=== PATIENT | female | born 1990 | race Caucasian/White ===

== ENCOUNTER 2019-04-09 12:15 | Inpatient (IN) | payer MEDICAID ==
[~2019-04-09] VITALS: Ht 157.5 cm; Wt 69.9 kg
[2019-04-09 12:33] VITALS: Ht 157.5 cm; Wt 69.9 kg
[2019-04-09] MEDS ORDERED: PREN-93 PO (12:35)
--- NOTE | 2019-04-09 16:53 | HP ---
Date/Time of Note Date/Time of Note DATE: 04/09/19 TIME: 16:52 OB - History Hx of Present Free Text/Dictation 37+ : 1 Para: 0 Care: Good Care Ultrasounds: Normal mid trimester US Obstetrical Complications: None Past Family/Social History * Past Medical, Surgical, Family and Obstetric Histories reviewed from chart. OB Admission Exam Physical Exam Cervical Dilatation: 4cm Effacement: 75% Station: -1 Membranes: Intact Heart Rate: 140's Accelerations: Accelerations Present Decelerations: No Decelerations Varibility: Moderate Contractions on Admission: 6-10 Minutes Apart OB Assessment/Plan Reason for admission: observation Other Assessment: PMH Denies PSH Denies Plan: Expectant Management MEGHANA MYERS M.D. Apr 09, 2019 16:53
--- NOTE | 2019-04-09 17:07 | TRIAGE ---
OB Triage Datetime Report Generated by CPN: 04/09/2019 17:07 Datetime: 04/09/2019 16:42 Vaginal Exam Dilatation (cms): 5.0 Effacement (%): 90 Station: -2 Exam By: DR MYERS Datetime: 04/09/2019 16:13 Stage of : OB Triage Maternal Assessment Level of Consciousness: Keenly Alert, Responsive DTR's/Clonus: DTRs 1+ Headache: Denies Blurred Vision: No Respiratory Effort: Unlabored Breath Sounds, Left: Clear and Equal Breath Sounds, Right: Clear and Equal Nausea/Vomiting: Denies RUQ Epigastric Pain: Denies Facial Edema: None Labor Evaluation Frequency: 3-11 Monitor Mode: External Duration (sec)2399: 40-60 Quality: Mild Pattern: Normal: <= 5 Contractions in 10 Minutes Resting Tone Niles: Relaxed Heart Rate FHR Baseline Rate: 135 Monitor Mode: External US Variability: Moderate 6-25 bpm Accelerations: 15X15 Decelerations: None Category: Category I Pain Assessment Pain Scale: 5 Pain Presence: Intermittent Pain Type: Cramping Pain Location: Back Pain Goal: 3 Membrane Status: Intact Datetime: 04/09/2019 15:14 Stage of : OB Triage Vaginal Exam Dilatation (cms): 2.5 Effacement (%): 90 Station: -2 Exam By: REFUGIO PEREA Vaginal Bleeding: None Cervix, Consistency: Soft Cervix, Position: Midposition Presentation 'A': Cephalic Datetime: 04/09/2019 13:23 Stage of : OB Triage Maternal Assessment Level of Consciousness: Keenly Alert, Responsive DTR's/Clonus: DTRs 1+ Headache: Denies Nausea/Vomiting: Denies RUQ Epigastric Pain: Denies Labor Evaluation Frequency: X3 Monitor Mode: External Duration (sec)2399: 40-210 Quality: Mild Pattern: Normal: <= 5 Contractions in 10 Minutes Resting Tone Niles: Relaxed Heart Rate FHR Baseline Rate: 130 Monitor Mode: External US Variability: Moderate 6-25 bpm Accelerations: 15X15 Decelerations: None Category: Category I Pain Presence: None/Denies Pain Type: N/A Membrane Status: Intact Datetime: 04/09/2019 12:53 Stage of : OB Triage Maternal Assessment Level of Consciousness: Keenly Alert, Responsive DTR's/Clonus: DTRs 1+ Headache: Denies Blurred Vision: No Nausea/Vomiting: Denies RUQ Epigastric Pain: Denies Facial Edema: None Labor Evaluation Frequency: 4-7 Monitor Mode: External Duration (sec)2399: 40-210 Quality: Mild Pattern: Normal: <= 5 Contractions in 10 Minutes Resting Tone Niles: Relaxed Heart Rate FHR Baseline Rate: 130 Monitor Mode: External US Variability: Moderate 6-25 bpm Accelerations: 15X15 Decelerations: None Category: Category I Pain Presence: None/Denies Pain Type: N/A Membrane Status: Intact Datetime: 04/09/2019 12:25 Stage of : OB Triage Vaginal Exam Dilatation (cms): 2.0 Effacement (%): 90 Station: -3 Exam By: BRITRN Datetime: 04/09/2019 12:20 Assessment Type: Triage Maternal Assessment Level of Consciousness: Keenly Alert, Responsive DTR's/Clonus: DTRs 2+; No Clonus Headache: Denies Blurred Vision: No Respiratory Effort: Unlabored; Regular Rhythm; Equal Expansion Breath Sounds, Left: Clear and Equal Breath Sounds, Right: Clear and Equal Nausea/Vomiting: Denies RUQ Epigastric Pain: Denies Lower Extremities Edema: None Degree: None Upper Extremities Edema: None Degree: None Facial Edema: None Fall Risk Assessment History of Falling: (0) No Secondary Diagnosis: (0) No Ambulatory Aid: (0) Bedrest/Nurse Assist IV Therapy: (0) No Gait: (0) Normal/Bedrest/Immobile Mental Status: (0) Oriented to Own Ability Fall Score: 0 Fall Risk Score Definition: No Risk: No action required Datetime: 04/09/2019 12:18 Time of Arrival: 04/09/2019 12:18 EGA: 37.3 Arrived By: Ambulatory Arrived From: Home Chief Complaint: R/O LABOR Movement: Present Contractions: Irregular Rupture of Membranes: Denies Vaginal Discharge: Denies Recent Sexual Intercouse: Denies Abdominal Trauma: Not Applicable Additional Patient Complaints: NONE Time Provider Notified: 04/09/2019 12:30 Provider Notified: TRINY Initial Plan: MONITOR, VE, BPP
[2019-04-09] MEDS: LACTATED RINGER'S 1,000 ML IV SCH (17:43)
[2019-04-09] MEDS ORDERED: METHYLERGONOVINE 0.2 MG INJ IM PRN (18:00)
[2019-04-09] MEDS ORDERED: AMPICILLIN 2 GM/NS (PMX) 100 ML IV ONE (18:00)
[2019-04-09] MEDS ORDERED: MISOPROSTOL 200 MCG TAB PR PRN (18:00)
[2019-04-09] MEDS ORDERED: OXYTOCIN 30 UNITS/LR 500 ML IV PRN (18:00)
[2019-04-09] MEDS ORDERED: CARBOPROST 250 MCG INJ IM PRN (18:00)
[2019-04-09] MEDS ORDERED: OXYTOCIN 30 UNITS/LR 500 ML IV SCH ×2 (18:00)
[2019-04-09] MEDS ORDERED: LIDOCAINE 1% (MPF) 30 ML INJ INJ PRN (18:00)
[2019-04-09] MEDS ORDERED: BUTORPHANOL 2 MG INJ IV PRN (18:00)
[2019-04-09] MEDS ORDERED: AMPICILLIN 1 GM/NS (PMX) 50 ML IV SCH (21:00)
[2019-04-10] MEDS: LACTATED RINGER'S 1,000 ML IV SCH ×3 (02:08→16:03)
--- NOTE | 2019-04-10 11:31 | QN ---
Documentation Comment progress note patient seen and evaluated no complaints vs stable afebrile ab gravid nt extremity no edema no calf tenderness ve 4-5/90/-1 srom fhr cat 1 toco occasional ctx a/ iup at term, in labor/srom p/ start pitocin for augmentation pain management as needed MUSA AGOSTO MD Apr 10, 2019 11:31
[2019-04-10] MEDS ORDERED: FENTAnyl 2MCG/ML-ROPIV 0.2% 100 ML ONE (11:36)
--- NOTE | 2019-04-10 12:14 | PREAC ---
Date/Time of Note Date/Time of Note DATE: 04/10/19 TIME: 12:12 Anesthesia Eval and Record Evaluation Time Pre-Procedure Interview DATE: 04/10/19 TIME: 12:12 Age 29 Sex female NPO: 8 hrs Preoperative diagnosis IUP Planned procedure L&D Epidural Past Medical History Past Medical History: Includes GI: Obesity : : Surgery & Anesthesia Issues No known issue Meds Anticoagulation: No Beta Josette within 24 hr: No Reason Beta Josette not given: Pt. not on B-Josette Reported Medications Vit No.124/Iron/FA ( Vitamin Tablet) 1 Each Tablet, 1 EACH PO, TAB 04/09/19 Current Medications Lactated Ringer's 1,000 ml @ 125 mls/hr Q8H IV Last administered on 04/10/19at 10:04; Admin Dose 125 MLS/HR; Start 04/09/19 at 17:32 Butorphanol Tartrate (Stadol) 2 mg Q2H PRN IV .PAIN SCALE 6-10; Start 04/09/19 at 18:00 Lidocaine (Xylocaine 1% (Mpf)) 30 ml ONCE PRN INJ .EPISIOTOMY; Start 04/09/19 at 18:00 Oxytocin/Lactated Ringer's 500 ml @ 500 mls/hr ONCE POST IV ; Start 04/09/19 at 18:00 Oxytocin/Lactated Ringer's 500 ml @ 125 mls/hr POST IV ; Start 04/09/19 at 18:00 Oxytocin/Lactated Ringer's 500 ml @ 0 mls/hr ONCE PRN IV .VAGINAL BLEEDING; Start 04/09/19 at 18:00 Methylergonovine Maleate (Methergine) 0.2 mg ONCE PRN IM .VAGINAL BLEEDING; Start 04/09/19 at 18:00 Carboprost Tromethamine (Hemabate) 250 mcg ONCE PRN IM .VAGINAL BLEEDING; Start 04/09/19 at 18:00 Misoprostol (Cytotec) 1,000 mcg ONCE PRN ME .VAGINAL BLEEDING; Start 04/09/19 at 18:00 Meds reviewed: Yes Allergies Coded Allergies: No Known Allergy (Unverified , 04/09/19) Allergies Reviewed: Yes Labs/Studies Labs Reviewed: Reviewed by anesthesiologist Result Diagram: 04/09/19 9965 Laboratory Tests 04/09/19 17:35 Blood Bank Test 04/09/19 17:35 Antibody Screen NEGATIVE Blood Type O POSITIVE Rh Immune Globulin Candidate NO test: Positive Studies: ECG Pre-procedure Exam Last vitals BP:112/56, P:78, Spo2:100%, T:98,8 Airway: Adequate mouth opening, Adequate thyromental dist Mallampati: Mallampati II Teeth: Normal Lung: Normal Heart: Normal ASA Physical Status ASA physical status: 2 Emergency: None Planned Anesthetic Neuraxial: Epidural Planned Pain Management Epidural, Parenteral pain med Pre-operative Attestations Prior to commencing anesthesia and surgery, the patient was re-evaluated, there was verification of: *The patient's identity *The results of appropriate recent lab work and preoperative vital signs *The above evaluation not changing prior to induction *Anesthetic plan, risk benefits, alternative and complications discussed with patient/family; questions answered; patient/family understands, accepts and wishes to proceed. YON ENNIS MD Apr 10, 2019 12:14
[2019-04-10] MEDS ORDERED: FENTAnyl 2MCG/ML-ROPIV 0.2% 100 ML BAG EPI SCH (12:30)
[2019-04-10] MEDS ORDERED: OXYTOCIN 30 UNITS/LR 500 ML IV SCH ×2 (12:30→21:57)
[2019-04-10] MEDS ORDERED: ONDANSETRON 4 MG INJ IV PRN ×2 (12:30→22:00)
[2019-04-10] MEDS ORDERED: NALOXONE (0.4 MG/ML) INJ IV PRN (12:30)
[2019-04-10] MEDS ORDERED: DIPHENHYDRAMINE 50 MG INJ IV PRN (12:30)
[2019-04-10] MEDS ORDERED: MINERAL OIL LIGHT 10 ML VIAL TOP ONE (19:30)
--- NOTE | 2019-04-10 21:57 | LDN ---
Date/Time of Note Date/Time of Note DATE: 04/10/19 TIME: 21:56 Delivery Summary Weeks of Gestation 37 Placenta Delivered: Spontaneously Meconium: none Episiotomy: No Laceration repair: 1st degree vaginal laceratio repair with 2-0 chromic Anesthesia type: Epidural Estimated blood loss: 300 Sponge & Needle done & correct: No All needle counts correct: No Delivery Information Sex Infant Sex: male Apgars 1 Minute: 8 5 Minute: 9 Suctioning Nose & mouth suctioned at tonia: No Umbilical Cord Umbilical cord with: 3 Vessels Cord presentations: nuchal cord Nuchal cord present X: 1 Cord Blood was obtained: Yes MUSA AGOSTO MD Apr 10, 2019 21:57
[2019-04-10] MEDS ORDERED: MISOPROSTOL 200 MCG TAB PR PRN (22:00)
[2019-04-10] MEDS ORDERED: LANOLIN HPA 1 PKT TOP PRN (22:00)
[2019-04-10] MEDS ORDERED: NACL 0.9% 3 ML SYG IV SCH (22:00)
[2019-04-10] MEDS ORDERED: OXYCODONE/ASPIRIN (4.88/325) TAB PO PRN ×2 (22:00)
[2019-04-10] MEDS ORDERED: CARBOPROST 250 MCG INJ IM PRN (22:00)
[2019-04-10] MEDS ORDERED: WITCH HAZEL/GLYCERIN PAD PR PRN (22:00)
[2019-04-10] MEDS ORDERED: METHYLERGONOVINE 0.2 MG INJ IM PRN (22:00)
[2019-04-10] MEDS ORDERED: DIPHENHYDRAMINE 25 MG CAP PO PRN (22:00)
[2019-04-10] MEDS ORDERED: OXYTOCIN 30 UNITS/LR 500 ML IV PRN (22:00)
[2019-04-10] MEDS ORDERED: BENZOCAINE 20% 56 ML SPRAY TOP PRN (22:00)
[2019-04-10 23:50] VITALS: BP 119/56; PULSE 92; RESP 2
[2019-04-11] MEDS: IBUPROFEN 600 MG TAB PO SCH ×5 (00:05→23:55)
[2019-04-11 03:59] VITALS: BP 96/53; PULSE 92; RESP 20
[2019-04-11 08:00] VITALS: BP 82/52; PULSE 94; RESP 18
[2019-04-11] MEDS: SENNA/DOCUSATE NA (8.6MG/50MG) TAB PO SCH ×2 (09:39→23:55)
[2019-04-11 12:00] VITALS: BP 101/50; PULSE 93; RESP 18
[2019-04-11 17:27] VITALS: BP 90/53; PULSE 79; RESP 18
[2019-04-11 20:00] VITALS: BP 88/49; PULSE 78; RESP 19
--- NOTE | 2019-04-11 23:40 | PD.PPDC ---
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
--- NOTE | 2019-04-11 23:42 | DS ---
Date/Time of Note Date/Time of Note DATE: 04/11/19 TIME: 23:41 Obstetrical Discharge Record Final Diagnosis Final Diagnosis: Term delivered Vaginal Delivery Obstetrical Delivery: Spontaneous, Laceration, Repaired Condition on Discharge Physical Assessment Last Vitals: stable afebrile Voiding: Yes Bowel Movement: Yes Breast: Soft, non-tender, Filling Fundus: Firm Abdomen and Incision: soft nt Calf Tenderness: No Patient Condition: Fair MUSA AGOSTO MD Apr 11, 2019 23:42
[2019-04-12 04:30] VITALS: BP 92/55; PULSE 79; RESP 18
[2019-04-12] MEDS: IBUPROFEN 600 MG TAB PO SCH ×2 (05:38→11:53)
[2019-04-12 08:00] VITALS: BP 94/47; PULSE 73; RESP 16
[2019-04-12] MEDS: SENNA/DOCUSATE NA (8.6MG/50MG) TAB PO SCH (09:59)
--- NOTE | 2019-04-12 12:30 | PAC ---
Date/Time of Note Date/Time of Note DATE: 04/12/19 TIME: 12:30 Post-Anesthesia Notes Post-Anesthesia Note Last documented vital signs Vital Signs Date Temp Pulse Resp B/P (MAP) Pulse Ox O2 O2 Flow FiO2 Time Delivery Rate 04/12/19 97.9 73 16 94/47 (63) Room Air 08:00 Activity: WNL Respiratory function: WNL Cardiovascular function: WNL Mental status: Baseline Pain reasonably controlled: Yes Hydration appropriate: Yes Nausea/Vomiting absent: Yes Comments BP:109/56, P:77, Spo2:100%, T:98,9 YON ENNIS MD Apr 12, 2019 12:30
[2019-04-12 16:00] VITALS: BP 107/54; PULSE 89; RESP 17
--- NOTE | 2019-04-13 17:58 | DELSUM ---
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 Babies in Womb: 1 Attempted: No Labor Anesthesia: None LABOR INFORMATION Reason for Induction: Not Applicable Onset of Labor: 04/09/2019 15:30 Complete Dilatation: 04/10/2019 20:55 Group B Beta Strep: Negative Antibiotics # of Doses: 1 Antibiotics Time of Last Dose: 04/09/2019 17:43 Steroids Given: None Reason Steroids Not Administered: Not Applicable MEMBRANES Membranes Rupture Method: Spontaneous Rupture of Membranes: 04/10/2019 10:53 Length of Rupture (hr): 10.72 Amniotic Fluid Color: Clear Amniotic Fluid Amount: Scant Amniotic Fluid Odor: None STAGES OF LABOR Stage 1 hr: 29 Stage 1 min: 25 Stage 2 hr: 0 Stage 2 min: 41 Stage 3 hr: 0 Stage 3 min: 3 Total Time in Labor hr: 30 Total Time in Labor min: 9 VAGINAL DELIVERY Episiotomy: None Laceration Extension: First Degree Laceration Type: Perineal Laceration Repair: Yes Initial Vag Sponge Count: 10 Final Vag Sponge Count: 10 Initial Vag Sharps Count: 1 Final Vag Sharps Count: 2 Sponge Count Correct: Yes; Vaginal Sweep Performed Sharps Count Correct: Yes BABY A INFORMATION Delivery Date/Time: 04/10/2019 21:36 Method of Delivery: Vaginal Born in Route : No : N/A Forceps: N/A Vacuum Extraction: N/A Shoulder Dystocia : No SHOULDER DYSTOCIA BABY A Delivery Date/Time: 04/10/2019 21:36 PRESENTATION/POSITION BABY A Presentation: Cephalic Cephalic Presentation: Vertex Breech Presentation: N/A PLACENTA INFORMATION BABY A Placenta Delivery Time : 04/10/2019 21:39 Placenta Method of Delivery: Expressed Placenta Status: Delivered SCORES BABY A Heart Rate 1 min: >100 bpm Resp Effort 1 min: Good Cry Reflex Irritability 1 min: Cough/Sneeze/Pulls Away Muscle Tone 1 min: Active Motion Color 1 min: Blue/Pale Resuscitation Effort 1 min: Tactile Stimulation SCORE 1 MIN: 8 Heart Rate 5 min: >100 bpm Resp Effort 5 min: Good Cry Reflex Irritability 5 min: Cough/Sneeze/Pulls Away Muscle Tone 5 min: Active Motion Color 5 min: Body [place], Extremit Blue Resuscitation Effort 5 min: Tactile Stimulation SCORE 5 MIN: 9 INFORMATION BABY A Gestational Age at Delivery: 37.4 Gestational Status: Early Term- 37- 38.6 Weeks Infant Outcome : Liveborn, with signs of life Infant Condition : Stable Sex: Male IDENTIFICATION/MEDS BABY A ID Band Number: [id number] ID Band Location: Right Leg; Left Arm Sensor Applied: Yes Sensor Number: [id number] Sensor Location : Cord Clamp Vitamin K Given : Not Given Erythromycin Given: Not Given WEIGHT/LENGTH BABY A Infant Birthweight (gm): 2715 Infant Weight (lb): 6 Weight (oz): 0 Length (in): 18.00 Infant Length (cm): 45.72 CORD INFORMATION BABY A No. Cord Vessels: 3 Nuchal Cord : N/A Cord Blood Taken: Yes Suction: Mouth; Nose ASSESSMENT BABY A Infant Complications: Multiple Late Decels; Multiple Variable Decels Physical Findings at Delivery: Within Normal Limits Infant Respirations: Appears Normal School Aide/ALS Called : No Infant Care By: JIN Transferred To: Remains with Mother
== END 2019-04-12 17:15 | disposition home or self-care (01) | DRG 807 ==
LOC: L-D 12:15 → OBT 12:15 → L-D 15:19 → PP1 04-10 23:34
PROVIDERS: ADMIT Obstetrics & Gynecology; ATTEND Obstetrics & Gynecology
PROC: 10E0XZZ Delivery of Products of Conception, External Approach (ICD-10-PCS; principal; 2019-04-09)
PROC: 0UQGXZZ Repair Vagina, External Approach (ICD-10-PCS; 2019-04-09)
DX: O71.4 Obstetric high vaginal laceration alone (principal); Z37.0 Single live birth; Z3A.37 37 weeks gestation of pregnancy
CPT/HCPCS: 62322; 76815; 76818; 85025; 85610; 85730; 86592; 86850; 86900; 86901; 87340; G0463; J0290; J2210; J2405; J2590; J3010; J7120